=== PATIENT | male | born 1970 | race Caucasian/White ===

== ENCOUNTER → 2020-01-21 | Outpatient (CLI) | payer BC, SELFPAY | END | disposition home or self-care (01) | LOC: MTDU 17:58 | PROVIDERS: PCP Family Medicine; Referring Provider Internal Medicine Gastroenterology; Visit Provider Internal Medicine Gastroenterology | DX: Z11.59 Encounter for screening for other viral diseases (principal) | CPT/HCPCS: 87635; C9803; U0003 ==

== ENCOUNTER 2021-08-12 06:03 | Outpatient (CLI) | payer BC, SELFPAY ==
--- NOTE | 2021-08-12 06:41 | MRI_ITS ---
STUDY: MRI CERVICAL SPINE WITHOUT CONTRAST REASON FOR EXAM: Male, 50 years old. Radiculopathy TECHNIQUE: Standardized fat and water weighted pulse sequences were obtained in the sagittal and axial planes. COMPARISON: None FINDINGS: Normal foramen magnum and brainstem-cervical cord junction. Normal craniovertebral junction. Normal anterior atlantoaxial articulation. Normal odontoid process. There is straightening of the normal cervical lordosis. C2-3: Normal endplates. Normal disc height, signal and morphology. Normal central canal and intervertebral neural foramina. C3-4: Normal endplates. Diffuse disc desiccation. Normal disc height and morphology. Normal central canal and intervertebral neural foramina. C4-5: Normal endplates. Diffuse disc desiccation mild disc space narrowing without disc bulging or herniation. Normal central canal and right neural foramen. Mild left foraminal stenosis secondary to uncovertebral hypertrophy but without nerve root compression. C5-6: Normal endplates. Diffuse disc desiccation. Normal disc height and morphology. Normal central canal. Mild bilateral foraminal stenosis with nerve root compression. C6-7: Normal endplates. Mild disc desiccation and disc space narrowing without bulging or herniation of the disc. Normal central canal and intervertebral neural foramina. C7-T1: Normal endplates. Normal disc height, signal and morphology. Normal central canal and intervertebral neural foramina. Normal cervical cord. There is no demonstrated cervical cord syrinx cavity. Normal visualized soft tissue structures. MRI/Spine Cervical (Routine) IMPRESSION: 1. Multilevel degenerative changes, as described above. 2. No central canal stenosis or cord compression Electronically Signed: Barron Martinez MD at 13:33 EDT ,
== END 2021-08-12 23:59 | disposition home or self-care (01) ==
LOC: MRI 06:09
PROVIDERS: PCP Family Medicine; Visit Provider Physician Assistant
DX: M54.12 Radiculopathy, cervical region (principal)
CPT/HCPCS: 72141

== ENCOUNTER → 2021-11-02 | Outpatient (CLI) | payer BC, SELFPAY ==
--- NOTE | 2021-11-02 12:42 | STEWCON_ITS ---
Reason For Study: CHEST PAIN Stress Results Protocol: Raymond Protocol WITH DEFINITY Maximum Predicted HR: 168 bpm Target HR: 143 bpm % Maximum Predicted HR: 98 % DurationHeart Rate Stage (mm:ss) (bpm) BP Comment BASELINE 67 142/944 CC DEFINITY STAGE 2 3:00 102 150/90 STAGE 2 3:00 115 172/86 STAGE 3 3:00 142 186/80 STAGE 4 1:45 164 / RECOVERY 94 140/96 Stress Duration: 10:45 mm:ss Maximum Stress HR: 164 bpm Baseline Echocardiogram Findings Stress Echo Wall motion Data Resting WM Intermediate WM Stress WM ECHO/Stress Test Echo W/Contrast Interpretation Summary Exercise stress echo. Resting EKG demonstrates normal sinus rhythm with a rate of 71 bpm normal inter vals are noted resting blood pressure is 142/94 mmHg. The patient exercised according to the r egular Raymond protocol for total duration of 10 minutes and 45 seconds completing 1 minute and 45 seco nds to stage IV of the Raymond protocol. The maximum heart rate attained was 164 bpm which was 97% o f max impacted heart rate the maximum workload was 13.7 metabolic equivalents. At rest there were no ST or T wave changes noted suggest ischemia and at peak exercise upsloping ST changes were noted we did not meet the criteria for ischemia the test was terminated due to the target heart rate bein g achieved. The peak blood pressure was 186/80 mmHg which was a normal blood pressure response to ex ercise. Stress echo. Resting echocardiogram demonstrated preserved ejection fraction with Definity e nhancement estimated ejection fraction of 60%. With exercise there was thickening of all gomez and r eduction of low ventricular cavity size peaking of ejection fraction of 70% with no wall motion abnormalities present. Conclusion: Normal exercise stress echo with no EKG or echocardiographic criteria for ische roberto carlos at high workload. No clinical angina noted. Excellent functional capacity. Ordering Physician: Bebo Veronica Referring Physician: Bebo Veronica Performed By: Thanh Downing RCS
== END | disposition home or self-care (01) ==
LOC: CVS 12:40
PROVIDERS: PCP Family Medicine; Referring Provider Internal Medicine Cardiovascular Disease; Visit Provider Internal Medicine Cardiovascular Disease
DX: I10 Essential (primary) hypertension (principal); R07.9 Chest pain, unspecified
CPT/HCPCS: 93017; 93350; Q9957; A4216; C8928

== ENCOUNTER → 2021-11-04 | Outpatient (CLI) | payer BC, SELFPAY ==
--- NOTE | 2021-11-04 13:07 | CT_ITS ---
STUDY: CT CHEST WITHOUT CONTRAST REASON FOR EXAM: Male, 51 years old. CAD. Cardiac over read examination. RADIATION DOSAGE (If Supplied By Facility): CTDIvol = ( 12.19 ) mGy, DLP = ( 243.79 ) mGycm TECHNIQUE: Transaxial imaging was performed without the administration of intravenous contrast material. Individualized dose optimization techniques were used for this CT. COMPARISON: No relevant priors. FINDINGS: CHEST The lungs are normal. There is no demonstrated pleural abnormality. There are calcifications of the coronary arteries. There are multiple small lymph nodes within the mediastinum, which are normal in size and morphology most compatible with reactive lymph hyperplasia. Normal hilar regions. Normal unenhanced pulmonary arteries. Normal aorta arch and descending thoracic aorta. Normal osseous structures. Small hiatal hernia. The patient is status post cholecystectomy. CT/Limited Chest CT Cardiac Only IMPRESSION: Coronary artery calcification. Electronically Signed: Constantino Coleman MD at 14:15 EDT ,
[2021-11-04 13:09] VITALS: BP 126/86; PULSE 71; RESP 16; TEMP 36.2; O2SAT 96; BMI 30.9
--- NOTE | 2021-11-07 18:18 | CA.SCORE ---
Calcium Scoring Date of Study:: 11/04/21 Coronary Calcium Scoring: High-resolution Computed Tomographic imaging of the chest was performed on [11/04/2021], with particular attention paid to the coronary arteries. Images from the examination were analyzed for the presence and extent of coronary artery calcification , using coronary calcium quantification software. The patient tolerated the procedure well and there were no complications. The results of the coronary calcification analysis are provided below. Findings Coronary Artery Left Main (LM): 7 Left Anterior Descending (LAD): 21 Left Circumflex (LCX): 0 Right Coronary Artery (RCA): 0 Total Agatston Score: 28 Calcium Scoring Interpretation: 0 No identifiable atherosclerotic plaque. Very low cardiovascular disease risk. <5% chance of presence coronary artery disease A Negative Examination 1-10 Minimal Plaque burden. Significant coronary artery disease very unlikely. 11-100 Mild plaque burden. Likely mild or minimal coronary atherosclerosis. 101-400 Moderate plaque burden Moderate non-obstructive coronary artery disease highly likely. Over 400 Extensive plaque burden. High likelihood of at least one significant coronary stenosis (>50% diameter) Calcium Score: 11 - 100 Likely mild or minimal coronary stenosis
== END | disposition home or self-care (01) ==
LOC: CT 13:00
PROVIDERS: PCP Family Medicine; Referring Provider Internal Medicine Cardiovascular Disease; Visit Provider Internal Medicine Cardiovascular Disease
DX: I25.10 Atherosclerotic heart disease of native coronary artery without angina pectoris (principal); K44.9 Diaphragmatic hernia without obstruction or gangrene; E78.5 Hyperlipidemia, unspecified; I10 Essential (primary) hypertension; Z71.89 Other specified counseling; Z90.49 Acquired absence of other specified parts of digestive tract
CPT/HCPCS: 75571; 76380